=== PATIENT | male | born 1940 | race Caucasian/White ===

== ENCOUNTER 2018-05-19 03:45 | Inpatient (IN) | payer OTHER ==
[~2018-05-19] VITALS: Ht 172.7 cm; Wt 64.0 kg
--- NOTE | 2018-05-19 05:57 | NUR ---
Pt. admitted to MHU , under care of Dr. Hermosillo/Coral Trinh. Diagnosis: Psychosis Belongs List completed. MRSA swab done. Report given to Lana TONEY.
[2018-05-19 06:42] VITALS: BP 96/47
[2018-05-19 07:30] VITALS: BP 99/53
[2018-05-19] MEDS ORDERED: MAG HYDROX/AL HYDROX/SIMETH 30 ML LIQUID UDC PO PRN (08:30)
[2018-05-19] MEDS ORDERED: ZOLPIDEM 5 MG TABLET PO PRN (08:30)
[2018-05-19] MEDS ORDERED: ACETAMINOPHEN 325 MG TABLET PO PRN (08:30)
[2018-05-19] MEDS ORDERED: MAGNESIUM HYDROXIDE 30 ML LIQUID UDC PO PRN (08:30)
--- NOTE | 2018-05-19 08:45 | NUR ---
Gps/Jewelsmith- Patient's was called this am. left message, informed of pt's. admission .
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
[2018-05-19 15:49] VITALS: BP_SYST 112; BP_SYST 130; BP_DIAS 52; BP_DIAS 78
--- NOTE | 2018-05-19 15:51 | NUR ---
Gps/Sulfuric Acid Plant Operator-Patient requesting to be released now, claimed he'd seen the Doctor ,needs to go to the bank. Informed patient he is on hold and needed to take his medications as ordered.Stayed up on his wheel chair , wheeling self around the unit. Noted patient urinated on the cup, encouraged and instructed to go to the bathroom when needed to void.
[2018-05-19] MEDS: DIVALPROEX SPRINKLE 125 MG CAP.SPRINK PO SCH (16:15)
--- NOTE | 2018-05-19 18:34 | NUR ---
Gps/Textile Pin Worker- Noted patient has small amount of bowel incontinence noted on his pajama buttom, encouraged good skin care/hygiene.
--- NOTE | 2018-05-19 19:40 | NUR ---
PATIENT ON W/C WHEELING THROUGH THE [address] WAY.DIRECTED THE PATIENT TO ACTIVITY ROOM AND IS WATCHING TV. ALL NEEDS MET. NO BEHAVIORAL ISSUES NOTED AT THIS TIME. PATIENT COMPLIANT WITH INSTRUCTIONS. WILL CONTINUE TO MONITOR.
[2018-05-19 20:39] VITALS: BP 110/55
[2018-05-19] MEDS ORDERED: QUETIAPINE FUMARATE 25 MG TABLET PO SCH (21:00)
--- NOTE | 2018-05-20 06:57 | NUR ---
PATIENT AWAKE, ON W/C. SLEPT FOR 6.15 HRS DURING THE SHIFT. BM X 1 DURING THE SHIFT. NO AGGRESSIVE BEHAVIOR NOTED.
[2018-05-20 07:21] LABS: *BILIRUBIN,URIN NEGATIVE (NEGATIVE); *BLOOD, URINE NEGATIVE (NEGATIVE); *CLARITY,URINE CLEAR (CLEAR); *COLOR,URINE YELLOW (YELLOW); *KETONES,URINE NEGATIVE (NEGATIVE); *PROTEIN,URINE TRACE (NEGATIVE); *UROBILINOGEN,URINE 0.2 E.U./dl (NORMAL); LEUKOCYTE ESTERASE ,URINE NEGATIVE (NEGATIVE); NITRITE, URINE NEGATIVE (NEGATIVE); UGLUCOSE NEGATIVE (NEGATIVE)
[2018-05-20 07:29] LABS: BACTERIA,URINE FEW /HPF (NONE SEEN); RBC,URINE NONE SEEN /HPF (0-3); SQUAMOUS EPITHELIAL CELL,UR FEW /HPF (NONE SEEN); WBC,URINE 0-3 /HPF (0-3)
[2018-05-20] MEDS ORDERED: Z GUARD REMEDY PASTE 57 GM TUBE TOP PRN (07:30)
[2018-05-20] MEDS: DIVALPROEX SPRINKLE 125 MG CAP.SPRINK PO SCH ×2 (08:46→17:52)
[2018-05-20 08:49] LABS: *AMPHETAMINE, URINE POSITIVE (NEGATIVE); *BARBITURATE, URINE NEGATIVE (NEGATIVE); *CANNABINOID, URINE NEGATIVE (NEGATIVE); *COCCAINE, URINE NEGATIVE (NEGATIVE); *OPIATE, URINE NEGATIVE (NEGATIVE); *PHENCYCLIDINE SCREEN,URINE NEGATIVE (NEGATIVE)
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
[2018-05-20 16:00] VITALS: BP 95/50
[2018-05-20] MEDS: LORAZEPAM 1 MG TABLET PO PRN (19:47)
[2018-05-20 20:00] VITALS: BP 115/69
[2018-05-20] MEDS ORDERED: QUETIAPINE FUMARATE 25 MG TABLET PO SCH (21:00)
--- NOTE | 2018-05-20 23:00 | NUR ---
received to care, lying in bed, angry, labile, and difficult to redirect. stated that he is being held against his will. stated that his hold is expiring this evening, and that he has a "big time resident advisor" on the way over here, with a "court order" for his release. he was reminded that he was placed on a 14 day hold earlier, but he denied that was true, although previous shift reported to this specifications writer that he was aware of this, and was not happy about it. this specifications writer tried to explain that he would have a hearing soon, by the court, regarding this, but he refused to listen, yelling intermittently, at this specifications writer. PRN ativan was given at 1946, then he took his bedtime meds, a little later. as of 2299. he appears to be asleep. no distress noted. will continue to monitor closely.
--- NOTE | 2018-05-20 23:00 | NUR ---
receic Addendum: 05/21/18 at 0154 by DEBORAH BANGURA LVN error
--- NOTE | 2018-05-21 06:00 | NUR ---
slept 5 hours total. assisted with am care, and shower. no distress noted
[2018-05-21 07:30] VITALS: BP 122/63
[2018-05-21] MEDS: DIVALPROEX SPRINKLE 125 MG CAP.SPRINK PO SCH ×2 (08:09→16:34)
[2018-05-21 15:25] LABS: CARBON DIOXIDE 27 mmol/L (21-32); CHLORIDE 106 mmol/L (98-107); CREATININE 1.1 mg/dL (0.6-1.3); GLUCOSE 96 mg/dL (74-106); POTASSIUM 3.9 mmol/L (3.5-5.1); UREA NITROGEN, BLOOD 15 mg/dL (7-18)
[2018-05-21 16:45] VITALS: BP 120/60
--- NOTE | 2018-05-21 17:12 | NUR ---
Patient REFUSED CT Head with or without contrast. Called to try to notify Dr. Katz two times. still has not called back.
[2018-05-21 19:30] VITALS: BP 115/65
[2018-05-21] MEDS ORDERED: QUETIAPINE FUMARATE 100 MG TABLET PO SCH (21:00)
[2018-05-21] MEDS ORDERED: QUETIAPINE FUMARATE 25 MG TABLET PO SCH (21:00)
--- NOTE | 2018-05-21 22:00 | NUR ---
received to care, watching tv in activity room, pleasant upon approach, but no interactions with peers. compliant with medications and staff direction. remains delusional, stating that he is a millionaire, and has "big time textile dyer" coming to "get me free". as of 2199, he appears to be asleep. no distress noted. will continue to monitor closely.
[2018-05-22 04:08] LABS: *BASOS 0 % (Not Estab.); *EOS 4 % (Not Estab.); *EOS ABSOLUTE 0.2 x10E3/uL (0.0-0.4); *HCT 30.8 % (37.5-51.0); *HGB 9.9 g/dL (13.0-17.7); *IMMATURE GRANULOCYTES 0 % (Not Estab.); *LYMPHOCYTES 29 % (Not Estab.); *LYMPHOCYTES ABSOLUTE 1.7 x10E3/uL (0.7-3.1); *MCH 27.8 pg (26.6-33.0); *MCHC 32.1 g/dL (31.5-35.7); *MCV 87 fL (79-97); *MONOCYTES 10 % (Not Estab.); *MONOCYTES ABSOLUTE 0.6 x10E3/uL (0.1-0.9); *NEUTROPHILS 57 % (Not Estab.); *NEUTROPHILS ABSOLUTE 3.3 x10E3/uL (1.4-7.0); *PLT 141 x10E3/uL (150-379); *RBC 3.56 x10E6/uL (4.14-5.80); *RDW 16.3 % (12.3-15.4); *WBC 5.9 x10E3/uL (3.4-10.8)
--- NOTE | 2018-05-22 06:00 | NUR ---
slept 9.0 hours total. assisted with am care, and shower. no distress noted
[2018-05-22 07:35] LABS: BASOPHILS % (AUTO) 0.4 % (0.0-2.0); EOSINOPHILS # (AUTO) 0.1 K/uL (0.0-0.7); EOSINOPHILS % (AUTO) 2.3 % (0.0-7.0); HEMATOCRIT 31.9 % (36.7-47.1); HEMOGLOBIN 10.7 g/dL (12.5-16.3); LYMPHOCYTES # (AUTO) 1.7 K/uL (20.0-40.0); LYMPHOCYTES % (AUTO) 27.8 % (20.5-51.5); MEAN CORPUSCULAR HEMOGLOBIN 28.7 uug (23.8-33.4); MEAN CORPUSCULAR HGB CONC 33 g/dL (32.5-36.3); MEAN CORPUSCULAR VOLUME 85.9 fL (73.0-96.2); MONOCYTES # (AUTO) 0.6 K/uL (2.0-10.0); MONOCYTES % (AUTO) 10.2 % (0.0-11.0); NEUTROPHILS # (AUTO) 3.6 K/uL (1.8-8.9); NEUTROPHILS % (AUTO) 59.3 % (38.5-71.5); PLATELET COUNT (AUTO) 146 K/uL (152-348); RED BLOOD CELL COUNT(AUTO) 3.71 MIL/uL (4.06-5.63); WHITE BLOOD COUNT (AUTO) 6.1 K/uL (3.6-10.2)
[2018-05-22 07:50] LABS: ALANINE AMINOTRANSFERASE 20 U/L (16-63); ALKALINE PHOSPHATASE 90 U/L (50-136); ASPARTATE AMINOTRANSFERASE 14 U/L (15-37); BILIRUBIN,TOTAL 0.2 mg/dL (0.2-1.0); CARBON DIOXIDE 26 mmol/L (21-32); CHLORIDE 105 mmol/L (98-107); GLUCOSE 101 mg/dL (74-106); MAGNESIUM 1.9 mg/dL (1.8-2.4); PHOSPHOROUS 3.2 mg/dL (2.5-4.9); POTASSIUM 3.9 mmol/L (3.5-5.1); UREA NITROGEN, BLOOD 15 mg/dL (7-18)
[2018-05-22] MEDS: DIVALPROEX SPRINKLE 125 MG CAP.SPRINK PO SCH ×3 (08:45→16:06)
--- NOTE | 2018-05-22 11:03 | NUR ---
Initial Discharge Instructions: Patient is currently homeless. Patient is unable to formulate a plan for self-care at this time. MIGUEL ANGEL spoke with patient's , Flakita Lino ([phone]) who states that the patient "needs placement." Educated about patient's rights and conservatorship/DPOA process. Per , she does not want to conserve the patient. MIGUEL ANGEL will collaborate with pt, family, and MD regarding most appropriate discharge plans for this patient. SW will form a safe and proper discharge.
--- NOTE | 2018-05-22 12:04 | NUR ---
UR Note: Received confirmation from [facility] Meter Changes Records Clerk for patient's Carve Out through [facility] (ph. [phone]; fax [phone]). Placed call and spoke with Research Manager, Kasandra, who states that Welt Sewer has not been assigned to the case at time of call. Per Kasandra, assigned continuous pillowcase cutter will contact this typewriter assembler for clinical information. SW will continue to follow-up.
[2018-05-22 12:15] LABS: *HELPER T-LYMPH MARKR(CD4)ABSO 131 /uL (359-1519); *HELPER T-LYNPH MARKER CD4)% 7.7 % (30.8-58.5)
--- NOTE | 2018-05-22 14:50 | NUR ---
UR Note: Received call from Infusion Therapy Nurse, Jocelyn Carr at [facility] (ph. [phone]). Provided clinical information to Jocelyn over the phone. Per Jocelyn, the patient is out of network and will contact [facility] to discuss next steps. Per Jocelyn, she will call this jingle writer back no later than tomorrow (05/23/18). SW will continue to follow-up.
[2018-05-22 16:29] VITALS: BP 116/59
[2018-05-22 19:30] VITALS: BP 120/64
[2018-05-22] MEDS ORDERED: QUETIAPINE FUMARATE 100 MG TABLET PO SCH (21:00)
[2018-05-23 07:30] VITALS: BP 110/60
[2018-05-23] MEDS: DIVALPROEX SPRINKLE 125 MG CAP.SPRINK PO SCH ×3 (08:39→17:23)
[2018-05-23] MEDS: LORAZEPAM 1 MG TABLET PO PRN (15:46)
[2018-05-23 16:30] VITALS: BP 115/64
[2018-05-23 19:30] VITALS: BP 103/51
[2018-05-23 20:54] VITALS: BP 129/63
[2018-05-23] MEDS: QUETIAPINE FUMARATE 200 MG TABLET PO SCH (20:54)
[2018-05-23] MEDS ORDERED: QUETIAPINE FUMARATE 100 MG TABLET PO SCH (21:00)
[2018-05-24 07:30] VITALS: BP 120/58
[2018-05-24] MEDS: DIVALPROEX SPRINKLE 125 MG CAP.SPRINK PO SCH ×3 (09:19→17:15)
--- NOTE | 2018-05-24 12:53 | NUR ---
UR Note: Spoke with Jocelyn Carr, out of area case management associate [phone]. She provided tracking number of [id number] [phone] since there is no accepting facility currently. She will call [facility] and see about other acute in network facilities but it does not seem likely he will be transferred. Pt is a placement issue. Clinical information on this pt. was also faxed to [phone]: Jocelyn Carr's fax. Will follow up. Left message for Slime Jacob at her medical group ([phone] ) per Jocelyn's suggestion.
[2018-05-24 16:23] VITALS: BP 116/68
[2018-05-24] MEDS: QUETIAPINE FUMARATE 200 MG TABLET PO SCH (20:26)
[2018-05-24 21:38] VITALS: BP 118/61
[2018-05-24] MEDS: LORAZEPAM 1 MG TABLET PO PRN (21:40)
[2018-05-25 07:30] VITALS: BP 101/58
[2018-05-25] MEDS: DIVALPROEX SPRINKLE 125 MG CAP.SPRINK PO SCH ×4 (09:38→20:08)
--- NOTE | 2018-05-25 15:32 | NUR ---
Social Work Discharge Plan Update: Pt. continues to refuse all placement and got irritated at the suggestion of a custodial. He stated " I want to leave. I am not going to a custodial." Pt. has some grandiose delusions about buying a motor home. He says he has an apartment which is not verified. Since pt. is refusing shelters, he needs to sign a homeless waiver form. In view of his methamphetamine abuse, he will be given substance abuse referrals. Discussed this case with Dr Ugalde who thinks that pt. will be ready for discharge possibly on MondayMay 29. UR Note : Advised Jocelyn Carr RN [phone] out of area case management specialist of tentative discharge date. Tracking number for this pt. is [id number]. Requested that Jocelyn provide in-network substance abuse referrals for this pt. She is out on 05/28/18 and will return on 05/29/18. Advsied her to call Josefina with these referrals.
[2018-05-25 16:56] VITALS: BP 109/62
--- NOTE | 2018-05-25 17:03 | NUR ---
GROUP NOTE: MOTOR SCOOTER MECHANIC Sukumar Valenzuela and DINKEY ENGINE MECHANIC Logging Tractor Operator, Radha Pathak met with patient in the Activity room on 05/25/2018. GOAL : To participate in an activity group for the day. INTERVENTION: MOTOR SCOOTER MECHANIC generated a conversation with patient regarding places he has traveled and where he plans to live once he has been discharged. Redirection was needed throughout the discussion. RESPONSE: Patient was receptive to talking with the SW and DINKEY ENGINE MECHANIC international marketing intern. Patient presented with delusional thoughts related to his finances, assets, properties he owns, and business ventures. Patient discussed his many travel plans once he is discharged. Patient expressed frustration with the reason for his hospitalization. Patient maintained appropriate eye contact throughout most of time he was interacting with SW, however his tone of voice became pressured towards the end. Patient was not easily redirected and perseverated on his frustration with being hospitalized on a psychiatric hold. PLAN: Patient will be invited and encouraged to participate in future group activities.
[2018-05-25] MEDS: QUETIAPINE FUMARATE 200 MG TABLET PO SCH (20:08)
[2018-05-25 23:36] VITALS: BP 107/60
--- NOTE | 2018-05-26 06:57 | NUR ---
PT SLEPT THROUGHOUT THE SHIFT. PT SLEPT SIX HOURS AND THIRTY MINUTES. PT SHOWS NO SIGNS OF DISTRESS. PT HAD ONE BOWEL MOVEMENT. SAFETY AND COMFORT PROVIDED. ALL NEEDS ARE MET.WILL ENDORSE TO DAYSHIFT NURSE FOR CONTINUITY OF CARE.
[2018-05-26 07:30] VITALS: BP 104/57
--- NOTE | 2018-05-26 07:30 | NUR ---
Recieved pt sitted up on his w/c, awake, alert and orientedx3. Calm and collected but easily raised voice and gets agitated.
[2018-05-26] MEDS: DIVALPROEX SPRINKLE 125 MG CAP.SPRINK PO SCH ×4 (08:53→20:47)
--- NOTE | 2018-05-26 13:00 | NUR ---
Pt is eating well. Remain on his w/c in the social coello most of the morning. No apprent distress noted. Tolerated medication well.
--- NOTE | 2018-05-26 13:49 | NUR ---
UR Note: Faxed additional clinical notes to Jocelyn Carr fax :[phone]. Tracking number: [id number]. Also requested substance abuse referrals from Sliem Jacob RN crop supervisor at [facility] . Left message on 05/26/18 for her to fax referrals to [phone], this senior technical writer's fax or to connect with Josefina on 05/28/18.
[2018-05-26 17:54] VITALS: BP 115/73
[2018-05-26 20:09] VITALS: BP 109/59
[2018-05-26] MEDS: QUETIAPINE FUMARATE 200 MG TABLET PO SCH (20:47)
[2018-05-27 07:59] VITALS: BP 117/70
[2018-05-27] MEDS: DIVALPROEX SPRINKLE 125 MG CAP.SPRINK PO SCH ×4 (08:20→20:20)
[2018-05-27 15:27] VITALS: BP 124/74
[2018-05-27 20:00] VITALS: BP 109/54
[2018-05-27] MEDS: QUETIAPINE FUMARATE 200 MG TABLET PO SCH (20:20)
[2018-05-28 07:30] VITALS: BP 103/55
[2018-05-28] MEDS: QUETIAPINE FUMARATE 100 MG TABLET PO SCH (08:20)
[2018-05-28] MEDS: DIVALPROEX SPRINKLE 125 MG CAP.SPRINK PO SCH ×4 (08:20→21:04)
--- NOTE | 2018-05-28 14:32 | NUR ---
UR Note: Faxed clinical notes to [facility] fax :[phone]. phone: [phone]. Tracking number: [id number]
[2018-05-28 16:00] VITALS: BP 104/56
[2018-05-28 20:27] VITALS: BP 112/55
[2018-05-28] MEDS: QUETIAPINE FUMARATE 200 MG TABLET PO SCH (21:03)
[2018-05-29 07:30] VITALS: BP 93/50
[2018-05-29] MEDS: QUETIAPINE FUMARATE 100 MG TABLET PO SCH (08:07)
[2018-05-29] MEDS: DIVALPROEX SPRINKLE 125 MG CAP.SPRINK PO SCH ×2 (08:08→12:27)
--- NOTE | 2018-05-29 10:58 | NUR ---
Discharge Note: Patient is choosing to be discharged to his own care and wishes to be transported to the following address: [address], [place] [address] at 2:30pm. Patient will be transported to the [employer] [facility] via taxi. Patient will be transported to the [employer] [[address], [place] [address]], and is aware that the bus stop is directly outside the bank. Pt reports he will take public transportation to his final destination, which is a bus fare of $3. Patient will be provided with a taxi voucher and $3 for bus fare. Patient refused B&C and chcf placement, even though it was offered to him. Patient was provided with the homeless chcf packet, which includes a list of emergency shelters, housing resources, drop in centers, and showers/hot meals centers. This also included the Homeless Information Hotline (995)-531-9802 or 211, [employer] and [place] , and the [facility] (196)-562-9961; [facility] (297-647-9245). alerted patients , Flakita ([phone]) to alert about patients discharge. Patient was provided with a brief substance abuse intervention and referred to [facility] , [facility] , and [facility] . Patient was referred to [facility] [phone] for Rotary Swaging Machine Operator referrals. Pt reports his PCP is Dr. Pee Lew [[address] , [place] [address]; ]. Spoke with [facility] Aftercare Coordinator, Niru, ([phone]) who states she will follow-up with the patient for aftercare appointments with an authorized Psychiatrist and Individual Therapy. Patient was provided with outpatient mental health resources to [facility] , Therese Coffey , and the National Suicide Prevention Lifeline . He has completed and signed the homeless patient waiver form. Addendum: 05/29/18 at 1131 by RAYMUNDO PEGUERO, TY SW Updated information on PCP: Received call from wire repairer at [facility], Slime Jacob ([phone]) and patient is assigned to PCP, Bacilio Meyer [[id number] [place], [place] [id number]; ph. ; fax ] and patient has an appointment with him on 06/06/18 at 3pm. Patient made aware. Addendum: 05/29/18 at 1501 by RAYMUNDO PEGUERO, TY SW Per patient, the best number at which to reach him is [phone].
--- NOTE | 2018-05-29 13:30 | NUR ---
called pt's pharmacy for all discharge prescription @ [phone]. patient said he will brain picker by him self.
--- NOTE | 2018-05-29 14:30 | NUR ---
patient will discharge via Taxi to destination of his choice , all personal belonging taken by pt.
--- NOTE | 2018-05-29 16:29 | NUR ---
UR Note: Faxed discharge clinical notes to [facility] fax :[phone]. phone: [phone]. Tracking number: [id number]. SW will continue to follow-up.
== END 2018-05-29 15:30 | disposition home or self-care (01) | DRG 885 ==
LOC: ER 03:57 → GPS 06:00
PROVIDERS: ADMIT Psychiatry & Neurology Psychiatry; ATTEND Registered Nurse
DX: F31.2 Bipolar disorder, current episode manic severe with psychotic features (principal); G93.40 Encephalopathy, unspecified; F15.10 Other stimulant abuse, uncomplicated; Z59.0 Homelessness; Z99.3 Dependence on wheelchair; M62.50 Muscle wasting and atrophy, not elsewhere classified, unspecified site; F17.210 Nicotine dependence, cigarettes, uncomplicated; G62.9 Polyneuropathy, unspecified; F28 Other psychotic disorder not due to a substance or known physiological condition; D69.6 Thrombocytopenia, unspecified
CPT/HCPCS: 36415; 70450; 71045; 80164; 80307; 83735; 84100; 85025; 86361; 86592; 87086; 87806; 93005; A4663